=== PATIENT | male | born 1985 | race Caucasian/White ===

== ENCOUNTER 2024-05-12 23:49 | Emergency (ER) | payer MEDICAID ==
[~2024-05-12] VITALS: Ht 165.1 cm; Wt 79.0 kg
[2024-05-13 00:13] VITALS: BP 133/87; PULSE 60; RESP 16; TEMP 98.1; O2SAT 99
[2024-05-13] MEDS: DEXAMETHASONE 10 MG/ML VIAL IM ONE (01:14)
== END 2024-05-13 01:57 | disposition home or self-care (01) ==
LOC: ER 05-13 00:05
DX: J02.8 Acute pharyngitis due to other specified organisms (principal)
CPT/HCPCS: 87430; 87070; 96372; 99283; J1100; Z7610

== ENCOUNTER 2024-09-12 04:43 | Emergency (ER) | payer MEDICAID ==
[~2024-09-12] VITALS: Ht 165.1 cm; Wt 81.5 kg
[2024-09-12 04:48] VITALS: O2SAT 99
[2024-09-12 04:50] VITALS: TEMP 98.8; O2SAT 99
[2024-09-12 05:30] VITALS: BP 141/96; PULSE 62; RESP 15
[2024-09-12] MEDS: KETOROLAC 15MG/ML VIAL IM ONE (05:30)
[2024-09-12] MEDS ORDERED: DICL75TA5 MT (08:40)
== END 2024-09-12 09:16 | disposition home or self-care (01) ==
LOC: ER 04:43
DX: S90.32XA Contusion of left foot, initial encounter (principal); X58.XXXA Exposure to other specified factors, initial encounter; Y93.89 Activity, other specified; Y92.89 Other specified places as the place of occurrence of the external cause; Y99.8 Other external cause status
CPT/HCPCS: 73630; 96372; 99283

== ENCOUNTER 2024-12-31 23:03 | Emergency (ER) | payer MEDICAID ==
[~2024-12-31] VITALS: Ht 165.1 cm; Wt 79.0 kg
[~2024-12-31 23:03] MED LIST: DICL75TA5 MT
[2024-12-31 23:16] VITALS: RESP 18; TEMP 36.9; O2SAT 100
[2024-12-31 23:19] VITALS: BP 141/78; PULSE 66; O2SAT 100
[2025-01-01] MEDS ORDERED: ERYT1OIN6 EACHEYE (00:25)
[2025-01-01] MEDS ORDERED: ERYTHROMYCIN BASE 0.5% OPHTH OINT 3.5GM BOTHEYE ONE (00:30)
[2025-01-01] MEDS: ERYTHROMYCIN BASE 0.5% OPHTH OINT 3.5GM BOTHEYE NR (01:02)
== END 2025-01-01 01:08 | disposition home or self-care (01) ==
LOC: ER 23:03
DX: H10.33 Unspecified acute conjunctivitis, bilateral (principal); H10.89 Other conjunctivitis; Z79.899 Other long term (current) drug therapy
CPT/HCPCS: 99283

== ENCOUNTER 2025-07-29 03:44 | Emergency (ER) | payer MEDICAID ==
[~2025-07-29] VITALS: Ht 165.1 cm; Wt 80.0 kg
[~2025-07-29 03:44] MED LIST changes: +ERYT1OIN6 EACHEYE
[2025-07-29 03:49] VITALS: O2SAT 98
[2025-07-29 04:19] LABS: BASOPHILS % 0.6 % (0.0-2.0); EOSINOPHILS % 1.3 % (0.0-5.0); HEMATOCRIT. 44.5 % (42.0-52.0); HEMOGLOBIN. 14.9 g/dL (14.0-18.0); LYMPHOCYTES % 31.4 % (20.0-50.0); MEAN PLATELET VOLUME 8.1 fl (7.4-10.4); MONOCYTES % 4.6 % (2.0-8.0); NEUTROPHILS % 62.1 % (40.0-76.0); PLATELET 306 x1000/uL (130-400); RED BLOOD CELL COUNT 5.06 mill/uL (4.7-6.1); RED CELL DISTRIBUTION WIDTH 12.9 % (11.6-14.6)
[2025-07-29 04:27] LABS: CREATININE 1.1 mg/dL (0.6-1.3)
[2025-07-29] MEDS: VISCOUS LIDOCAINE 2% 15 ML UDC MM ONE (04:27)
[2025-07-29] MEDS: SODIUM CHLORIDE 0.9% 1,000 ML IV ONE (04:27)
[2025-07-29] MEDS: MAGNESIUM/ALUMINUM HYDROXIDE/SIMETHICONE 30ML UDC PO ONE (04:27)
[2025-07-29 04:28] LABS: ETHANOL BLOOD < 10 mg/dL (<10); UREA NITROGEN BLOOD 18 mg/dL (9-23)
[2025-07-29 04:29] LABS: ASPARTATE AMINOTRANSFERASE 25 IU/L (<34)
[2025-07-29 04:30] LABS: BILIRUBIN DIRECT 0.2 mg/dL (<=3.0); BILIRUBIN TOTAL 0.7 mg/dL (0.1-1.0); PROTEIN TOTAL 7.1 g/dL (6.0-8.3)
[2025-07-29 04:31] LABS: INR 1.0
[2025-07-29] MEDS ORDERED: FAMO-134 MT (05:34)
[2025-07-29] MEDS ORDERED: ONDA-239 PO (05:34)
[2025-07-29 05:36] VITALS: BP 122/81; PULSE 61; RESP 16; TEMP 36.6; O2SAT 98
== END 2025-07-29 05:38 | disposition home or self-care (01) ==
LOC: ER 03:44
DX: R10.13 Epigastric pain (principal); K80.20 Calculus of gallbladder without cholecystitis without obstruction; Z79.899 Other long term (current) drug therapy
CPT/HCPCS: 80076; 80048; 80320; 83690; 83735; 85025; 85610; 85730; 36415; 76705; 93005; 96360; 99284; J7030; G0480